=== PATIENT | female | born 1970 | race Caucasian/White ===

== ENCOUNTER 2018-07-03 08:00 | Outpatient (CLI) | payer OTHER ==
[2018-07-03] MEDS ORDERED: LISI-170 PO (14:52)
[2018-07-03] MEDS ORDERED: UBID1CAP43 PO (15:10)
[2018-07-03] MEDS ORDERED: MULT-658 PO (15:10)
[2018-07-03] MEDS ORDERED: CHOL100011 PO (15:10)
[2018-07-03] MEDS ORDERED: NITR100C PO (15:10)
[2018-07-03] MEDS ORDERED: ALPR-475 PO (15:10)
[2018-07-03] MEDS ORDERED: CALC-126 PO (15:10)
[2018-07-03 15:43] LABS: ALANINE AMINOTRANSFERASE 18 U/L (12-78); ALBUMIN 3.8 g/dL (3.4-5.0); ANION GAP 6 mmol/L (5-15); CALCIUM 8.4 mg/dL (8.5-10.1); CHLORIDE 109 mmol/L (98-107); CREATININE 0.99 mg/dL (0.55-1.02)
[2018-07-03 15:45] LABS: ALKALINE PHOSPHATASE 48 U/L (45-117); BILIRUBIN,TOTAL 0.4 mg/dL (0.2-1.0); TOTAL PROTEIN 6.9 g/dL (6.4-8.2)
== END 2018-07-03 23:59 | disposition home or self-care (01) ==
LOC: STAR 08:00
PROVIDERS: ATTEND Surgery
DX: Z01.818 Encounter for other preprocedural examination (principal)
CPT/HCPCS: 36415; 80053

== ENCOUNTER 2018-07-08 06:17 | Day surgery (SDC) | payer OTHER ==
[~2018-07-08] VITALS: Ht 175.3 cm; Wt 72.0 kg
[~2018-07-08 06:17] MED LIST: ALPR-475 PO; CALC-126 PO; CHOL100011 PO; LISI-170 PO; MULT-658 PO; NITR100C PO; UBID1CAP43 PO
[2018-07-08 06:42] VITALS: BP 146/91
[2018-07-08] MEDS ORDERED: LACTATED RINGERS 1,000 ML IV SCH (06:45)
[2018-07-08] MEDS ORDERED: LIDOCAINE-MPF 1%, 2ML INFIL ONE (07:00)
[2018-07-08] MEDS ORDERED: FENTANYL PF 250 MCG/5ML ONE (07:22)
[2018-07-08] MEDS ORDERED: MIDAZOLAM 1 MG/ML, 2ML ONE (07:22)
[2018-07-08] MEDS ORDERED: SCOPOLAMINE PATCH, 1.5MG PATCH.TD72 TD ONE (07:30)
[2018-07-08] MEDS ORDERED: ACETAMINOPHEN 500 MG TABLET PO ONE (07:30)
[2018-07-08] MEDS ORDERED: GABAPENTIN 300 MG CAPSULE PO ONE (07:30)
[2018-07-08] MEDS ORDERED: PROPOFOL 10 MG/ML, 20ML ONE (07:37)
[2018-07-08] MEDS ORDERED: ONDANSETRON 2MG/ML, 2ML ONE (07:37)
[2018-07-08] MEDS ORDERED: DEXAMETHASONE 4 MG/ML, 1ML ONE (07:37)
[2018-07-08] MEDS ORDERED: SUCCINYLCHOLINE 20 MG/ML, 10ML ONE (07:37)
[2018-07-08] MEDS ORDERED: ROCURONIUM 10 MG/ML,10ML ONE (07:37)
[2018-07-08] MEDS ORDERED: HYDROmorphone 1 MG/ML, 1ML IV PRN (08:00)
[2018-07-08] MEDS ORDERED: MEPERIDINE/PF 25MG/0.5ML IVPush PRN (08:00)
[2018-07-08] MEDS ORDERED: ONDANSETRON 2MG/ML, 2ML IVPush PRN (08:00)
[2018-07-08] MEDS ORDERED: PROMETHAZINE 25 MG/ML, 1ML IV PRN (08:00)
[2018-07-08] MEDS ORDERED: OXYcodone 5 MG/5 ML ORAL.SOL UDC PO PRN (08:00)
[2018-07-08] MEDS ORDERED: LABETALOL 5MG/ML, 20ML IV PRN (08:00)
[2018-07-08] MEDS ORDERED: METOCLOPRAMIDE 5 MG/ML, 2ML IV PRN (08:00)
[2018-07-08] MEDS ORDERED: KETOROLAC 30 MG/1 ML IV PRN (08:00)
[2018-07-08] MEDS ORDERED: hydrALAzine 20 MG/ML, 1ML IV PRN (08:00)
[2018-07-08] MEDS ORDERED: ALBUTEROL SULFATE 2.5 MG/3 ML NPPB PRN (08:00)
[2018-07-08] MEDS ORDERED: OXYcodone 5 MG/5 ML ORAL.SOL UDC ONE (08:35)
[2018-07-08] MEDS ORDERED: FENTANYL PF 100 MCG/2ML ONE ×2 (08:35→08:54)
[2018-07-08] MEDS: FENTANYL PF 100 MCG/2ML IV PRN ×3 (08:37→09:03)
[2018-07-08] MEDS ORDERED: KETOROLAC 30 MG/1 ML ONE (08:42)
== END 2018-07-08 11:25 | disposition home or self-care (01) ==
LOC: OUT 06:17
PROVIDERS: ATTEND Surgery
DX: E04.1 Nontoxic single thyroid nodule (principal); I10 Essential (primary) hypertension; G43.909 Migraine, unspecified, not intractable, without status migrainosus; Z98.890 Other specified postprocedural states; Z72.89 Other problems related to lifestyle; Z87.891 Personal history of nicotine dependence
CPT/HCPCS: 60220; 88307; J0330; J1100; J1885; J2250; J2405; J2704; J3010; J3490; J7120; C1760